=== PATIENT | female | born 1995 | race African-American/Black ===

== ENCOUNTER 2018-02-21 12:39 | Outpatient (CLI) | payer SELFPAY ==
[2018-02-21 14:22] LABS: APPEARANCE,URINE SLIGHTLY-CLOUDY; BILIRUBIN,URINE NEGATIVE (NEGATIVE); COLOR,URINE YELLOW; GLUCOSE, URINE NEGATIVE (NEGATIVE); KETONES,URINE NEGATIVE (NEGATIVE); LEUKOCYTE ESTERASE,URINE SMALL (NEGATIVE); NITRITE,URINE NEGATIVE (NEGATIVE); PROTEIN,URINE NEGATIVE (NEGATIVE); URINE SPECIFIC GRAVITY 1.024
[2018-02-21 14:47] LABS: URINE AMPHETAMINES SCREEN NEGATIVE; URINE BARBITURATES SCREEN NEGATIVE; URINE BENZODIAZEPINES SCREEN NEGATIVE; URINE COCAINE SCREEN NEGATIVE; URINE MARIJUANA (THC) SCREEN NEGATIVE; URINE METHADONE SCREEN NEGATIVE; URINE PHENCYCLIDINE SCREEN NEGATIVE
--- NOTE | 2018-02-21 15:45 | L&D Progress Notes ---
PROGRESS NOTES Datetime Report Generated by CPN: 02/21/2018 15:45 PROGRESS NOTE Comment: Seen as labor check for lower abd pain. [place], never had a sono, had Informaseque and knows the sex, not sure why she had it done. Pain appears to be round ligament, abd soft, no bleeding, no leaking of fluid Plan of care discussed with Dr. Bocanegra, ultrasound ordered, no uc's, + FHT, + FM, vs stable Sono = 24+ 5, EDC 9-1-18, Ant placenta,ADEEL normal Pt needs needs to get local OB here in town and get records transferred. Mother at BS SIGNATURE SIGNATURE: [id number] Assignment: Mik Bocanegra MD Signature: with User ID: [email or web address] : with User ID: [email or web address]
--- NOTE | 2018-02-21 15:46 | RADIOLOGY REPORT (SQ) ---
EXAM DESCRIPTION: U/S OB 14+ TRNABD 1GES W/O DOP COMPLETED DATE/TIME: 02/21/2018 3:27 pm REASON FOR STUDY: limited care COMPARISON: None. TECHNIQUE: Static and Dynamic grayscale imaging performed of gravid uterus using transabdominal appr oac. Additional selected color Doppler and spectral images recorded. All stored on PACS. LIMITATIONS: None. FINDINGS: EGA: By ultrasound, 24 weeks 5 days MARSHA: 06/08/2018 EFW: 717 g PERCENTILE: 48th percentile ADEEL: 19 cm PLACENTA: Anterior, GRADE: I PRESENTATION: Transverse ANATOMY: HEART RATE: 152 beats per minute. FOUR CHAMBER HEART: Visualized. THREE VESSEL CORD: Yes. CORD INSERTION: Visualized. KIDNEYS AND BLADDER: Visualized. Appear normal. STOMACH: Visualized. Appears normal. SPINE: Normal as visualized. BRAIN AND LATERAL VENTRICLES: Visualized. Appear normal. OTHER: No other significant finding. MATERNAL ADNEXA: Maternal ovaries not visualized. CERVICAL LENGTH: Not visualized. OTHER: No other significant finding. IMPRESSION: LIVING INTRAUTERINE . ESTIMATED GESTATIONAL AGE 24 weeks 5 days NO VISUALIZED ANOMALIES. Trimester of : Second trimester - 13 weeks 1 day to 27 weeks 6 days. TECHNICAL DOCUMENTATION: JOB ID: [id number] [employer]- All Rights Reserved Reading location - IP/workstation name: [email or web address]
== END 2018-02-21 16:00 | disposition home or self-care (01) ==
LOC: LC 12:39
PROVIDERS: ATTEND Obstetrics & Gynecology Gynecology
PROC: 4A1HXCZ Monitoring of Products of Conception, Cardiac Rate, External Approach (ICD-10-PCS; principal; 2018-02-21)
DX: O26.892 Other specified pregnancy related conditions, second trimester (principal); Z3A.24 24 weeks gestation of pregnancy
CPT/HCPCS: 76805; 80307; 81001

== ENCOUNTER 2018-04-03 10:52 | Outpatient (CLI) | payer MEDICAID ==
[2018-04-03 11:56] LABS: APPEARANCE,URINE SLIGHTLY-CLOUDY; BILIRUBIN,URINE NEGATIVE (NEGATIVE); COLOR,URINE YELLOW; GLUCOSE, URINE NEGATIVE (NEGATIVE); KETONES,URINE NEGATIVE (NEGATIVE); LEUKOCYTE ESTERASE,URINE LARGE (NEGATIVE); NITRITE,URINE NEGATIVE (NEGATIVE); PROTEIN,URINE NEGATIVE (NEGATIVE); URINE SPECIFIC GRAVITY 1.021; UROBILINOGEN,URINE NEGATIVE mg/dL (<2.0)
[2018-04-03 11:59] LABS: URINE AMPHETAMINES SCREEN NEGATIVE; URINE BARBITURATES SCREEN NEGATIVE; URINE BENZODIAZEPINES SCREEN NEGATIVE; URINE COCAINE SCREEN NEGATIVE; URINE MARIJUANA (THC) SCREEN NEGATIVE; URINE METHADONE SCREEN NEGATIVE; URINE PHENCYCLIDINE SCREEN NEGATIVE
== END 2018-04-03 12:23 | disposition home or self-care (01) ==
LOC: LC 10:52
PROVIDERS: ATTEND Obstetrics & Gynecology
PROC: 4A1HXCZ Monitoring of Products of Conception, Cardiac Rate, External Approach (ICD-10-PCS; principal; 2018-04-03)
DX: Z34.83 Encounter for supervision of other normal pregnancy, third trimester (principal)
CPT/HCPCS: 36415; 80307; 81001; 82962; 83036; 86592; 86701

== ENCOUNTER 2019-02-12 09:03 | Emergency (ER) | payer SELFPAY ==
[2019-02-12] MEDS ORDERED: IBUPROFEN 600 MG TABLET PO ONE (10:43)
[2019-02-12] MEDS ORDERED: ERYTHROMYCIN 0.5% OPH OINTMENT 3.5 GM TUBE OD ONE (10:43)
--- NOTE | 2019-02-12 10:46 | ER Document Report ---
ED General - General Chief Complaint: Eye Problem Stated Complaint: EYE ISSUE Time Seen by Provider: 02/12/19 10:04 Mode of Arrival: Ambulatory Information source: Patient, [facility] Records Notes: 23-year-old female presents with right eyelid pain and swelling that started 1 day prior to arrival. Patient states that yesterday she noticed some swelling of her eyelid and pulled out multiple eyelashes. She states since that time she is experience worsening pain, swelling of the eyelid. She denies inner eye pain, pain with eye movement, recent illness, discharge from the eye. Patient complaining of a mild right-sided aching headache. Patient does not wear contacts but she does wear glasses. Denies any visual changes. TRAVEL OUTSIDE OF THE [place] IN LAST 30 DAYS: No - HPI Onset: Yesterday Onset/Duration: Gradual, Persistent Quality of pain: Achy Severity: Mild Associated symptoms: Headache. denies: Allergy/hay fever, Body/muscle aches, Nonproductive cough, Diarrhea, Earache, Fever, Nausea, Vomiting, Rhinnorhea, Sinus pain/drainage Exacerbated by: Denies Relieved by: Denies Similar symptoms previously: Yes Recently seen / treated by doctor: No - Related Data Allergies/Adverse Reactions: No Known Allergies Allergy (Verified 02/12/19 09:07) Past Medical History - General Information source: Patient - Social History Smoking Status: Current Some Day Smoker Cigarette use (# per day): Yes - 2 Smoking Education Provided: Yes - Smoking cessation counseling was provided for 4 minutes at the bedside Frequency of alcohol use: None Drug Abuse: None Lives with: Family Family History: Reviewed & Not Pertinent Patient has suicidal ideation: No Patient has homicidal ideation: No - Medical History Medical History: Negative Renal/ Medical History: Denies: Hx Peritoneal Dialysis Review of Systems - Review of Systems Notes: REVIEW OF SYSTEMS: CONSTITUTIONAL : Denies fever, chills, or sweats. Denies recent illness. Denies weight loss, recent hospitalizations. EENT: Denies visual changes, + eye pain. Denies sore throat, oral lesions, difficulty swallowing. CARDIOVASCULAR: Denies chest pain. Denies palpitations. Denies lower extremity edema. RESPIRATORY: Denies cough. Denies shortness of breath, wheezing. GASTROINTESTINAL: Denies abdominal pain or distention. Denies nausea, vomiting, or diarrhea. Denies blood in vomitus, stools, or per rectum. Denies black, tarry stools. Denies constipation. GENITOURINARY: Denies difficulty urinating, painful urination, frequency, blood in urine, or vaginal discharge. MUSCULOSKELETAL: Denies back or neck pain or stiffness. Denies joint pain or swelling. SKIN: Denies rash, lesions or sores. HEMATOLOGIC : Denies easy bruising or bleeding. LYMPHATIC: Denies swollen glands. NEUROLOGICAL: Denies confusion or altered mental status. Denies loss of consciousness. Denies dizziness or lightheadedness. + headache. Denies weakness or paralysis. Denies problems difficulty with ambulation, slurred speech. Denies sensory loss, numbness, or tingling. Denies seizures. PSYCHIATRIC: Denies anxiety or stress. Denies depression, suicidal ideation, or homicidal ideation. Denies visual or auditory hallucinations. Physical Exam - Vital signs Vitals: Temp Pulse Resp BP Pulse Ox 98.3 F 75 18 107/60 99 02/12/19 09:13 02/12/19 09:13 02/12/19 09:13 02/12/19 09:13 02/12/19 09:13 - Notes Notes: PHYSICAL EXAMINATION: GENERAL: Well-appearing, well-nourished and in no acute distress. HEAD: Atraumatic, normocephalic. EYES: Pupils equal round and reactive to light, extraocular movements intact, conjunctiva are normal. Visual acuity 20/20 OD/OS, OU mild swelling of the right upper eyelid. ENT: Nares patent, oropharynx clear without exudates. Moist mucous membranes. NECK: Normal range of motion, supple without lymphadenopathy LUNGS: Breath sounds clear to auscultation bilaterally and equal. No wheezes rales or rhonchi. HEART: Regular rate and rhythm without murmurs ABDOMEN: Soft, nontender, nondistended abdomen. No guarding, no rebound. No masses appreciated. Female : deferred Musculoskeletal: Normal range of motion, no pitting or edema. No cyanosis. NEUROLOGICAL: Cranial nerves grossly intact. Normal speech, normal gait. Normal sensory, motor exams PSYCH: Normal mood, normal affect. SKIN: Warm, Dry, normal turgor, no rashes or lesions noted. Course - Re-evaluation Re-evalutation: 02/12/19 17:46 23-year-old female presents with right eyelid swelling, pain after pulling out several eyelashes yesterday. Patient does have mild swelling of the eyelid. No purulent discharge appreciated although patient states it was there. Patient has a history of blepharitis. Patient was placed on erythromycin ophthalmic ointment. Instructions to apply warm compresses and clean the eyelid with baby soap were given. Patient was evaluated and treated as appropriate for the patient's presenting symptoms and complaint, with consideration of any critical or life threatening conditions that may be associated with their obtained history and exam as noted above. All results were discussed with patient. Patient provided the opportunity to ask questions, and express concerns. Patient was educated on treatments based on their presumed diagnosis as noted above. At this time we will discharge the patient with return precautions and follow-up recommendations. Verbal discharge instructions given a the bedside. Medication warnings reviewed. Patient is in agreement with this plan and has verbalized understanding of return precautions. After careful consideration I feel that that patient can be safely discharged from the emergency department, they were advised to followup with a primary care physician in 2-3 days. Dictation on this chart was performed using voice recognition software and may result in unintended grammatical, spelling, syntax or errors. - Vital Signs Vital signs: Temp Pulse Resp BP Pulse Ox 98.3 F 77 16 125/59 L 99 02/12/19 11:06 02/12/19 11:06 02/12/19 11:06 02/12/19 11:06 02/12/19 09:13 Discharge - Discharge Clinical Impression: Blepharitis of eyelid of right eye Qualifiers: Blepharitis type: unspecified type Eyelid: upper Qualified Code(s): H01.001 - Unspecified blepharitis right upper eyelid Condition: Good Disposition: HOME, SELF-CARE Additional Instructions: You have an infection of your eyelid. Please apply the antibiotic ointment 4 times daily for the next 2 weeks. Please apply warm compresses to the closed lid for 5 to 10 minutes 2-4 times daily and wash the lid with baby shampoo and water. Follow up with your [id number] hours for further care or return to the ED IMMEDIATELY if symptoms worsen or you have any concerns. If you cannot afford to follow up with your primary care physician a list of low cost clinics have been provided at the end of your discharge papers as well. Most prescribed medications have multiple side effects. The safest thing to do is when filling your prescription speak to your pharmacist regarding possible interactions with your normal home medications and over the counter medications such as Ibuprofen, Tylenol, Benadryl. If you experience any symptoms that cause you discomfort or concern you should discontinue the medication immediately and return to the emergency room or call your primary care physician. Prescriptions: Erythromycin Base [Erythromycin Oph 1 Gm Oint Ud] 1 applic OD Q6H 14 Days #1 tube Forms: Return to Work
[2019-02-12 11:07] VITALS: BP 125/59
== END 2019-02-12 11:06 | disposition home or self-care (01) ==
LOC: ER 09:03
DX: H01.001 Unspecified blepharitis right upper eyelid (principal); H57.11 Ocular pain, right eye; R51 Headache; R22.0 Localized swelling, mass and lump, head; F17.210 Nicotine dependence, cigarettes, uncomplicated
CPT/HCPCS: 99406; 99282; J3490

== ENCOUNTER 2019-06-16 23:46 | Emergency (ER) | payer MEDICAID ==
[2019-06-16 23:58] VITALS: BP 125/79
== END 2019-06-17 01:49 | disposition left against medical advice (07) ==
LOC: ER 23:46
DX: Z53.21 Procedure and treatment not carried out due to patient leaving prior to being seen by health care provider (principal)

== ENCOUNTER 2020-03-29 21:30 | Emergency (ER) | payer MEDICAID ==
--- NOTE | 2020-03-29 22:23 | ER Document Report ---
ED Medical Screen (RME) - General Stated Complaint: LEFT EYE PAIN Time Seen by Provider: 03/29/20 22:20 Mode of Arrival: Ambulatory Information source: Patient Notes: Patient is a 24-year-old female who presents the emergency department with chief complaint of sharp stabbing pain to her left eye and what she describes as loss of her peripheral vision. She states she saw an eye doctor 3 years ago who mentioned that she may be starting to get glaucoma. She denies any direct trauma to her eye, denies any blurred vision. She does not wear contact lenses. She will need to be fully evaluated in the back by a provider. I have greeted and performed a rapid initial assessment of this patient. A comprehensive ED assessment and evaluation of the patient, analysis of test results and completion of the medical decision making process will be conducted by additional ED providers. I have specifically instructed the patient or family members with the patient to immediately return to any nursing staff should anything change in the patient's condition or with their chief complaint. TRAVEL OUTSIDE OF THE [place] IN LAST 30 DAYS: No - Related Data Allergies/Adverse Reactions: No Known Allergies Allergy (Verified 02/12/19 09:07) Past Medical History Renal/ Medical History: Denies: Hx Peritoneal Dialysis Physical Exam - Vital signs Vitals: Temp Pulse Resp BP Pulse Ox 98.7 F 78 18 146/89 H 99 03/29/20 21:44 03/29/20 21:44 03/29/20 21:44 03/29/20 21:44 03/29/20 21:44 Course - Vital Signs Vital signs: Temp Pulse Resp BP Pulse Ox 98.7 F 78 18 146/89 H 99 03/29/20 21:44 03/29/20 21:44 03/29/20 21:44 03/29/20 21:44 03/29/20 21:44
[2020-03-30] MEDS ORDERED: METOCLOPRAMIDE HCL INJ/PF 10 MG/2 ML SDV IV ONE (02:08)
[2020-03-30] MEDS ORDERED: KETOROLAC TROMETHAMINE INJ/PF 30 MG/1 ML SDV IV ONE (02:08)
--- NOTE | 2020-03-30 02:11 | ER Document Report ---
ED General - General Chief Complaint: Eye Problem Stated Complaint: LEFT EYE PAIN Time Seen by Provider: 03/29/20 22:20 Primary Care Provider: GUILLERMO SELLERS MD [ACTIVE STAFF] - Follow up in 3-5 days Mode of Arrival: Ambulatory Notes: Patient is a 24-year-old female that comes emergency department for chief complaint of a headache that started on Wednesday (about 5 days ago). She states that she has pain just behind her left eye with sensation of pain shooting through her eye and up into her forehead. She also reports intermittent lightheadedness. She denies visual loss but does report some blurred vision in the left eye especially to the lateral/peripheral aspect. She denies nausea or vomiting, neck pain, fever/chills, head injury. She states she gets headaches she takes medication [id number] for which she has never been diagnosed or imaged for headaches. She denies , she denies any daily medications. She does not wear contacts, she does wear glasses, she states she was evaluated 3 years ago by an cardiac exercise physiologist and told "I might have glaucoma". TRAVEL OUTSIDE OF THE [place] IN LAST 30 DAYS: No - Related Data Allergies/Adverse Reactions: No Known Allergies Allergy (Verified 02/12/19 09:07) Past Medical History - General Information source: Patient - Social History Smoking Status: Current Every Day Smoker Chew tobacco use (# tins/day): No Frequency of alcohol use: Occasional Drug Abuse: Marijuana Lives with: Family Family History: Reviewed & Not Pertinent Renal/ Medical History: Denies: Hx Peritoneal Dialysis Surgical Hx: Negative - Immunizations Immunizations up to date: Yes Hx Diphtheria, Pertussis, Tetanus Vaccination: Yes Review of Systems - Review of Systems Constitutional: See HPI EENT: See HPI Cardiovascular: No symptoms reported Respiratory: No symptoms reported Gastrointestinal: No symptoms reported Genitourinary: No symptoms reported Female Genitourinary: No symptoms reported Musculoskeletal: No symptoms reported Skin: No symptoms reported Hematologic/Lymphatic: No symptoms reported Neurological/Psychological: See HPI Physical Exam - Vital signs Vitals: Temp Pulse Resp BP Pulse Ox 98.7 F 78 18 146/89 H 99 03/29/20 21:44 03/29/20 21:44 03/29/20 21:44 03/29/20 21:44 03/29/20 21:44 - Notes Notes: GENERAL: Alert, interacts well. No acute distress. HEAD: Normocephalic, atraumatic. EYES: Pupils equal, round, and reactive to light. Extraocular movements intact. Sclera clear and not injected. No discharge. No superficial foreign body, no fluorescein uptake, negative Mary sign. Normal visual luque and acuity ENT: Oral mucosa moist, tongue midline. Oropharynx unremarkable. Airway patent. NECK: Full range of motion. Supple. Trachea midline. No lymphadenopathy. LUNGS: Clear to auscultation bilaterally, no wheezes, rales, or rhonchi. No respiratory distress. Non-tender chest wall. HEART: Regular rate and rhythm. No murmur ABDOMEN: Soft, non-tender. Non-distended. EXTREMITIES: Moves all 4 extremities spontaneously. No edema, normal radial and dorsalis pedis pulses bilaterally. No cyanosis. BACK: no cervical, thoracic, lumbar midline tenderness. No saddle anesthesia, normal distal neurovascular exam. Moves all extremities in full range of motion. NEUROLOGICAL: Alert and oriented x3. Normal speech. Cranial nerves II through XII grossly intact. Strength 5/5 in all extremities. PSYCH: Normal affect, normal mood. SKIN: Warm, dry, normal turgor. No rashes or lesions noted. Course - Re-evaluation Re-evalutation: Patient with multiple days of a headache, left eye pain, reported visual blurring in the left eye. Examination of the left eye is completely unremarkable with no fluorescein abnormalities or abnormalities otherwise. Patient has unremarkable visual acuity, normal visual luque, we will attempt to treat her headache. CT of the head with no acute findings, this was performed because of her reported neurological symptoms and lack of previous headaches. Laboratory work-up unremarkable. Reevaluate patient after treatment with Reglan and Toradol, left eye pain is completely resolved, headache is resolved, visual blurring is resolved. This appears to be migraine symptoms, very low suspicion of acute abnormality with the eye or intracranial abnormality. Discussed findings, treatment options, follow-up, and return precautions with patient. Patient states appreciation and agreement. Stable and well-appearing without any symptoms at time of discharge. - Vital Signs Vital signs: Temp Pulse Resp BP Pulse Ox 98.6 F 66 18 135/72 H 98 03/30/20 04:48 03/30/20 04:48 03/30/20 04:48 03/30/20 04:48 03/30/20 04:48 - Laboratory Result Diagrams: 03/30/20 03:50 03/30/20 03:50 Laboratory results interpreted by me: 03/30/20 03/30/20 03:50 03:50 Hct 35.8 L Creatinine 0.51 L Calcium 8.0 L Discharge - Discharge Clinical Impression: Left eye pain Headache Qualifiers: Headache type: unspecified Headache chronicity pattern: acute headache Intractability: not intractable Qualified Code(s): R51 - Headache Condition: Stable Disposition: HOME, SELF-CARE Additional Instructions: Based on your evaluation tonight your symptoms appear to be coming from a migraine type headache. Your CAT scan is normal, laboratory work-up and evaluation are otherwise unremarkable. Follow-up with primary care referral for additional management of headaches, take medication provided if needed. Return if you worsen including return/severe worsening headache, vomiting, loss of vision, fever, swelling or redness of your eye, or any other concerning or worsening symptoms. Prescriptions: Butalb/Acetaminophen/Caffeine [Fioricet (50-325-40 mg) Tablet] 1 tab PO Q4HP PRN #20 tab PRN Reason: Referrals: GUILLERMO SELLERS MD [ACTIVE STAFF] - Follow up in 3-5 days
--- NOTE | 2020-03-30 03:11 | RADIOLOGY REPORT (SQ) ---
INDICATION: headache, visual change in left eye, no H/A hx. COMPARISON: None CORRELATION: None TECHNIQUE: Noncontrast spiral axial CT images were obtained from the skull base to vertex. This exam was performed according to our departmental dose-optimization program, which includes automated exposure control, adjustment of the mA and/or kV according to patient size and/or use of iterative reconstruction techniques. FINDINGS: There is no evidence of acute intracranial hemorrhage, midline shift, mass effect or mass lesion. Soliman-white differentiation is normal. There is no evidence of acute large territory infarct. Ventricles and extracerebral spaces are within normal limits, for age. The visualized paranasal sinuses are grossly clear. The orbits and eyeballs are unremarkable. The mastoid air cells are clear. Skull base and calvarium appear intact. IMPRESSION: No acute intracranial process is identified.
[2020-03-30 04:10] LABS: ABSOLUTE EOSINOPHILS # (AUTO) 0.1 10^3/uL (0.0-0.6); ABSOLUTE LYMPHOCYTES (AUTO) 1.5 10^3/uL (0.5-4.7); ABSOLUTE MONOCYTES (AUTO) 0.4 10^3/uL (0.1-1.4); ABSOLUTE NEUT (AUTO) 3.4 10^3/uL (1.7-8.2); BASOPHILS % (AUTO) 0.4 % (0-2); EOSINOPHILS % (AUTO) 1.7 % (0-6); HEMATOCRIT 35.8 % (36.0-47.0); HEMOGLOBIN 12.2 g/dL (12.0-15.5); LYMPHOCYTES % (AUTO) 27.8 % (13-45); MEAN CORPUSCULAR HEMOGLOBIN 30.6 pg (27.0-33.4); MEAN CORPUSCULAR HGB CONC 34.1 g/dL (32.0-36.0); MEAN CORPUSCULAR VOLUME 90 fl (80-97); MONOCYTES % (AUTO) 6.9 % (3-13); PLATELET COUNT 285 10^3/uL (150-450); RED BLOOD COUNT 3.99 10^6/uL (3.72-5.28); RED CELL DISTRIBUTION WIDTH 13.9 % (11.5-14.0); SEGMENTED NEUTROPHILS % (AUTO) 63.2 % (42-78); TOTAL CELLS COUNTED % (AUTO) 100 %; WHITE BLOOD COUNT 5.4 10^3/uL (4.0-10.5)
[2020-03-30 04:22] LABS: ANION GAP 6 (5-19); BLOOD UREA NITROGEN 14 mg/dL (7-20); CARBON DIOXIDE 28 mmol/L (22-30); CHLORIDE 103 mmol/L (98-107); GLUCOSE 90 mg/dL (75-110); POTASSIUM 4.3 mmol/L (3.6-5.0)
[2020-03-30 04:49] VITALS: BP 135/72
== END 2020-03-30 04:49 | disposition home or self-care (01) ==
LOC: ER 21:30
DX: H57.12 Ocular pain, left eye (principal); R51 Headache; F17.200 Nicotine dependence, unspecified, uncomplicated
CPT/HCPCS: 99284; 96374; 96375; 36415; 84703; 85025; 80048; 70450; J1885; J2765